=== PATIENT | female | born 1930 | race Caucasian/White ===

== ENCOUNTER 2019-10-03 15:23 | Emergency (ER) | payer OTHER ==
[~2019-10-03] VITALS: Ht 152.4 cm; Wt 49.0 kg
[2019-10-03 19:28] LABS: BASO % 0.2 % (0.0-1.0); EOS # 0.2 10*3/uL (0.0-0.4); EOS % 1.5 % (1.0-4.0); HEMATOCRIT 44.7 % (37.0-47.0); HEMOGLOBIN 14.5 g/dl (12.0-16.0); LYMPH # 2.9 10*3/uL (1.3-4.4); LYMPH % 21.4 % (27.0-41.0); MEAN CELL VOLUME 92.5 fl (81.0-99.0); MEAN CORPUSCULAR HGB CONC 32.4 g/dl (33.0-37.0); MEAN PLATELET VOLUME 10.3 fl (9.6-12.3); MONO # 0.8 10*3/uL (0.1-1.0); MONO % 5.7 % (3.0-9.0); NEUT # 9.6 10*3/uL (2.3-7.9); NEUT % 70.8 % (47.0-73.0); PLATELET COUNT AUTOMATED 231 10*3/uL (130-400); RED BLOOD COUNT 4.83 10*6/uL (4.10-5.10); RED CELL DISTRI WIDTH 12.8 % (0-14.5); WHITE BLOOD COUNT 13.6 10*3/uL (4.8-10.8)
[2019-10-03 19:38] LABS: ACT PARTIAL THROMBO TIME 25.8 SECONDS (20.0-32.1)
[2019-10-03 19:43] LABS: ALBUMIN 3.5 gm/dl (3.1-4.5); ALKALINE PHOSPHATASE 88 U/L (45-117); BUN 18 mg/dl (7-24); CHLORIDE 109 mmol/L (98-107); POTASSIUM 4.5 mmol/L (3.5-5.1); SGOT/AST 28 IU/L (3-35); SGPT/ALT 22 U/L (12-78); SODIUM 141 mmol/L (136-145); TOTAL PROTEIN 6.7 gm/dL (6.4-8.2)
[2019-10-03] MEDS ORDERED: GOOD NEIGHBOR500 M2 PO (21:32)
[2019-10-03] MEDS ORDERED: DONEPEZIL HCL10 MG PO (21:32)
[2019-10-03] MEDS ORDERED: ASPIRIN ADULT L81 M2 PO (21:32)
[2019-10-03] MEDS ORDERED: LEVETIRACETAM500 MG PO (21:33)
[2019-10-03] MEDS ORDERED: FLOVENT DISKUS50 MCG INH (21:33)
[2019-10-03] MEDS ORDERED: ICAPS AREDS2 S1 EACH PO (21:34)
[2019-10-03] MEDS ORDERED: ZYRTEC10 MG PO (21:36)
[2019-10-03] MEDS ORDERED: NATURAL LUTEIN20 MG PO (21:36)
[2019-10-03] MEDS ORDERED: PRAVASTATIN SOD80 MG PO (21:36)
[2019-10-03] MEDS ORDERED: Lopressor25 MG PO (21:36)
== END 2019-10-04 00:45 | disposition short-term general hospital (02) ==
LOC: ED 15:23
PROVIDERS: Physician Assistant
DX: S72.012A Unspecified intracapsular fracture of left femur, initial encounter for closed fracture (principal); S42.412A Displaced simple supracondylar fracture without intercondylar fracture of left humerus, initial encounter for closed fracture; I10 Essential (primary) hypertension; I25.10 Atherosclerotic heart disease of native coronary artery without angina pectoris; Z96.653 Presence of artificial knee joint, bilateral; W07.XXXA Fall from chair, initial encounter; Y93.89 Activity, other specified; Y92.000 Kitchen of unspecified non-institutional (private) residence as the place of occurrence of the external cause; Y99.8 Other external cause status

== ENCOUNTER 2020-08-06 08:47 | Inpatient (IN) | payer OTHER ==
[~2020-08-06] VITALS: Ht 152.4 cm; Wt 48.3 kg
[2020-08-06] VITALS (9 sets, daily range): BP systolic 110–169; BP diastolic 62–85
[~2020-08-06 08:47] MED LIST: ASPIRIN ADULT L81 M2 PO; DONEPEZIL HCL10 MG PO; FLOVENT DISKUS50 MCG INH; GOOD NEIGHBOR500 M2 PO; ICAPS AREDS2 S1 EACH PO; LEVETIRACETAM500 MG PO; Lopressor25 MG PO; NATURAL LUTEIN20 MG PO; PRAVASTATIN SOD80 MG PO; ZYRTEC10 MG PO
[2020-08-06 10:22] LABS: BASO % 0.4 % (0.0-1.0); EOS # 0.3 10*3/uL (0.0-0.4); EOS % 2.4 % (1.0-4.0); HEMATOCRIT 46.4 % (37.0-47.0); LYMPH # 2.6 10*3/uL (1.3-4.4); LYMPH % 23.3 % (27.0-41.0); MEAN CORPUSCULAR HGB 29.1 pg (27.0-31.0); MEAN CORPUSCULAR HGB CONC 31.3 g/dl (33.0-37.0); MEAN PLATELET VOLUME 9.8 fl (9.6-12.3); MONO # 0.8 10*3/uL (0.1-1.0); NEUT # 7.4 10*3/uL (2.3-7.9); NEUT % 66.5 % (47.0-73.0); PLATELET COUNT AUTOMATED 236 10*3/uL (130-400); RED BLOOD COUNT 4.99 10*6/uL (4.10-5.10); RED CELL DISTRI WIDTH 13.4 % (0-14.5); WHITE BLOOD COUNT 11.1 10*3/uL (4.8-10.8)
[2020-08-06 10:33] LABS: ACT PARTIAL THROMBO TIME 29.4 SECONDS (20.0-32.1)
[2020-08-06 10:36] LABS: BUN 18 mg/dl (7-24); CHLORIDE 107 mmol/L (98-107); CREATININE 0.73 mg/dL (0.55-1.02); POTASSIUM 4.4 mmol/L (3.5-5.1); SODIUM 140 mmol/L (136-145)
--- NOTE | 2020-08-06 13:44 | NUR ---
PT REVIEVED HIP BLOCK PER SURGERY Anna Marie VITAL PT STATES SHE IS COMFORTABE PT TOLERATED PROCEDURE WELL PT STATES SHE IS WARM ENOUGHT HAS NO REQUESTS
--- NOTE | 2020-08-06 16:15 | NUR ---
PATIENT INSTRUCTED ON I/S Q1 X 10. PATIENT ACHIEVED AN INITIAL VOLUME OF 1500 X 10. GOOD EFFORT.
--- NOTE | 2020-08-06 18:00 | NUR ---
Time: 1799 A 89 year old FEMALE admitted to 4E under services of DANILO ESTRADA DO. Pt. arrived via bed from ER. Chief complaint: RIGHT HIP FRACTURE. VICTORIA JADE
[2020-08-06] MEDS ORDERED: QUETIAPINE FUMA25 M1 PO (18:34)
--- NOTE | 2020-08-06 20:00 | NUR ---
IN TO ASSESS PATIENT. PATIENT PLEASANT AND COOPERATIVE IN NO DISTRESS SLEEPING BUT AROUSED EASILY. PATIENT STATES SHE JUST FEELS SORE, BUT IS ALRIGHT RIGHT NOW. PERKINS CATHETER DRAINING FOR YELLOW URINE. PATIENT HAS NO COMPLAINTS AT THIS TIME BESIDES WANTING A DRINK OF WATER. ICE WATER PROVIDED FOR PATIENT. PATIENT FORGETFUL, BUT STATES SHE KNOWS THAT SHE'S GETTING HER HIP FIXED TOMORROW. BREATHING IS EASY AND REGULAR. PATIENT ALSO SWABBED FOR COVID-19 FOR SNF PLACEMENT IN THE FUTURE. PATIENT TOLERATED WELL. CALL LIGHT WITHIN REACH, BED ALARM INTACT, WILL CONTINUE TO MONITOR
--- NOTE | 2020-08-06 22:09 | NUR ---
PRN NORCO GIVEN FOR PT COMPLAINTS OF RIGHT HIP PAIN RATING IT 6/10. CALL LIGHT WITHIN REACH, WILL MONITOR
--- NOTE | 2020-08-06 23:00 | NUR ---
PRN MEDICATION APPEARS EFFECTIVE, PT SLEEPING
[2020-08-07] VITALS (13 sets, daily range): BP systolic 89–138; BP diastolic 42–83
--- NOTE | 2020-08-07 00:35 | NUR ---
PRN MORPHINE GIVEN FOR PT COMPLAINTS OF PAIN IN THE RIGHT HIP RATING IT 5/10. CALL LIGHT WITHIN REACH, WILL MONITOR
--- NOTE | 2020-08-07 01:30 | NUR ---
PRN MORPHINE APPEARS EFFECTIVE, PT SLEEPING
--- NOTE | 2020-08-07 01:49 | NUR ---
24 HR chart check completed.
--- NOTE | 2020-08-07 03:05 | NUR ---
PT CONTINUES TO SLEEP. NO DISTRESS NOTED. SNORING RESPIRATIONS. CALL LIGHT WTIHIN REACH, WILL MONITOR
[2020-08-07 07:28] LABS: BASO % 0.3 % (0.0-1.0); EOS % 0.1 % (1.0-4.0); HEMATOCRIT 40.6 % (37.0-47.0); LYMPH # 1.9 10*3/uL (1.3-4.4); MEAN CELL VOLUME 91.6 fl (81.0-99.0); MEAN CORPUSCULAR HGB 29.3 pg (27.0-31.0); MEAN PLATELET VOLUME 9.8 fl (9.6-12.3); MONO # 1.1 10*3/uL (0.1-1.0); MONO % 7.5 % (3.0-9.0); NEUT # 11.7 10*3/uL (2.3-7.9); NEUT % 78.8 % (47.0-73.0); PLATELET COUNT AUTOMATED 239 10*3/uL (130-400); RED BLOOD COUNT 4.43 10*6/uL (4.10-5.10); RED CELL DISTRI WIDTH 13.4 % (0-14.5); WHITE BLOOD COUNT 14.8 10*3/uL (4.8-10.8)
[2020-08-07 07:43] LABS: ALBUMIN 3.2 gm/dl (3.1-4.5); ALKALINE PHOSPHATASE 69 U/L (45-117); BUN 20 mg/dl (7-24); CHLORIDE 106 mmol/L (98-107); CHOLESTEROL 119 mg/dL (<200); CREATININE 0.69 mg/dL (0.55-1.02); HDL CHOLESTEROL 62 mg/dl (40-60); POTASSIUM 4.8 mmol/L (3.5-5.1); SGOT/AST 13 IU/L (3-35); SGPT/ALT 17 U/L (12-78); SODIUM 139 mmol/L (136-145); TOTAL PROTEIN 6.7 gm/dL (6.4-8.2)
[2020-08-07 07:49] LABS: LDL CHOLESTEROL 41 mg/dL (9-159); THYROID STIM HORMONE (HS) 0.407 uIU/ml (0.358-4.75); TRIGLYCERIDES 80 mg/dl (<150); VLDL CHOLESTEROL 16 mg/dL (6-40)
[2020-08-07 08:38] LABS: VITAMIN D, 25-HYDROXY 37.5 ng/mL (30-100)
--- NOTE | 2020-08-07 10:20 | NUR ---
PT TAKEN TO OR FOR RIGHT HIP HEMARTHROPLASTY WITH DR LARRY.
--- NOTE | 2020-08-07 12:00 | NUR ---
Registered Dental Assistant in to talk to patient. Patient states lives at HOME with SONS MOTHER IN LAW. There are NO steps in the home. Physician: CRISTY Pharmacy: PT UNSURE OF NAME Home health services: NONE Patient's level of ADLs: MODERATE ASSIST Patient has working utilities: YES DME: [facility] Follow-up physician's appointment after d/c: WILL BE MADE BY HOSPITALIST NURSE DIRECTOR Does patient want to access PORTAL?: NO Discharge plan PT LIVES AT HOME WITH HER SONS MOTHER IN LAW. SON AND DAUGHTER IN LAW LIVE NEXT DOOR. DAUGHTER IN LAW PROVIDES CARE FOR BOTH MOTHERS. WILL TALK WITH SON ABOUT DISCHARGE PLANS AFTER SURGERY AND PT WORKS WITH PATIENT. WILL CONTINUE TO FOLLOW. . DON WOLF
--- NOTE | 2020-08-07 16:10 | NUR ---
Nursing screen received and chart reviewed. Patient had a right hip repair by Dr Moon this date. Patient could benefit from Occupational Therapy referral. Thank you. Glory Mckinley OTr/L
--- NOTE | 2020-08-07 19:59 | NUR ---
REQUESTED AND RECEIVED NORCO PER PRN ORDER FOR COMPLAINTS OF RIGHT HIP PAIN RATING A 6. WILL MONITOR
--- NOTE | 2020-08-07 20:05 | NUR ---
24 HR chart check completed.
--- NOTE | 2020-08-07 20:45 | NUR ---
EARLIER NORCO APPEARS EFFECTIVE. SLEEPING. RESPIRATIONS EASY. LUNGS DIMINISHED, CLEAR. PULSE OX 99% 2L. DRESSING DRY AND INTACT TO RIGHT HIP - ABDUCTOR PILLOW AND ICE IN PLACE. PERKINS PATENT. CALL LIGHT WITHIN REACH. NO VOICED COMPLAINTS. BED ALARM MAINTAINED FOR SAFETY
[2020-08-08] VITALS: BP 125/58
--- NOTE | 2020-08-08 | NUR ---
SLEEPING. NO DISTRESS NOTED. RESPIRATIONS EASY. VSS. CALL LIGHT WITHIN REACH. BED ALARM MAINTAINED
--- NOTE | 2020-08-08 02:14 | NUR ---
REQUESTED AND RECEIVED NORCO PER PRN ORDER FOR COMPLAINTS OF RIGHT HIP PAIN RATING A 6. WILL MONITOR
[2020-08-08] MEDS ORDERED: ASPIRIN ADULT L81 M2 PO (02:36)
--- NOTE | 2020-08-08 02:59 | NUR ---
EARLIER MEDS APPEAR EFFECTIVE. SLEEPING. RESPIRATIONS EASY. CALL LIGHT WITHIN REACH. BED ALARM MAINTAINED
--- NOTE | 2020-08-08 06:00 | NUR ---
SLEPT THROUGHOUT NIGHT WITH NO DISTRESS NOTED. RESPIRATIONS EASY. ICE PLACED TO RIGHT HIP. ABD PILLOW AND SCD IN PLACE. CALL LIGHT WITHIN REACH. BED ALARM MAINTAINED
[2020-08-08 07:08] LABS: BASO # 0.1 10*3/uL (0.0-0.1); BASO % 0.4 % (0.0-1.0); EOS # 0.6 10*3/uL (0.0-0.4); EOS % 4.8 % (1.0-4.0); LYMPH # 2.3 10*3/uL (1.3-4.4); LYMPH % 20.5 % (27.0-41.0); MEAN CELL VOLUME 91.8 fl (81.0-99.0); MEAN CORPUSCULAR HGB CONC 31.6 g/dl (33.0-37.0); MEAN PLATELET VOLUME 9.9 fl (9.6-12.3); MONO # 1.1 10*3/uL (0.1-1.0); MONO % 9.7 % (3.0-9.0); NEUT # 7.4 10*3/uL (2.3-7.9); NEUT % 64.3 % (47.0-73.0); PLATELET COUNT AUTOMATED 215 10*3/uL (130-400); RED BLOOD COUNT 4.14 10*6/uL (4.10-5.10); RED CELL DISTRI WIDTH 13.4 % (0-14.5); WHITE BLOOD COUNT 11.4 10*3/uL (4.8-10.8)
[2020-08-08 08:00] VITALS: BP 124/56
--- NOTE | 2020-08-08 08:27 | NUR ---
PT MEDICATED WITH PRN NORCO BEFORE WORKING WITH PT. PT RATED PAIN 10/10. WILL MONITOR.
--- NOTE | 2020-08-08 09:00 | NUR ---
PHYSICAL THERAPY Physical Therapy evaluation completed on with full evaluation to follow. Recommend physical therapy per plan of care and SNF upon discharge. Thank you for this referral. Brianna Menendez PT
--- NOTE | 2020-08-08 11:05 | NUR ---
PERKINS CATHETER REMOVED PER ORDER. 300 ML IN BAG.
--- NOTE | 2020-08-08 11:13 | NUR ---
Attempted to contact patients son and daughter in law, unable to contact, left message.
[2020-08-08 12:00] VITALS: BP 132/64
--- NOTE | 2020-08-08 14:01 | NUR ---
Patients son Tim called back, discussed discharge plan. He states that he believes patient is a little too much care to take home right now and would like a snf referral to the [facility] in [place]. Contacted [facility] and faxed initial referral. Waiting on OT eval, pt/ot notes, covid test negative and precert.
--- NOTE | 2020-08-08 14:15 | NUR ---
PHYSICAL THERAPY PT SUPINE IN BED UPON ARRIVEL. PT IDENTIFIED BY NAME AND . PT AGREED TO ALL PHYSICAL THERAPY TREATMENT. OT PRESENT FOT TREATMENT. PT PERFORMED BED MOBILITY MODaX2 WITH MAX VC'S TO PERFORM TASK PROPERLY AND TO MAINTAIN PRECATIONS. PT PERFORMED STS FROM EOB TO/FROM FWW WITH MODaX2 WITH VC'S FOR HAND PLACEMETN FOR SAFETY. PT PERFORMED STANDING TALERANCE FOR 10SEC AND REQUESTED TO SIT DUE TO PAIN. PT C/O INCREASED PAIN WITH STANDING AND SITTING. PT PERFORMED SIT TO SUPINE WITH MODaX2 AND VC'S TO MAINTAINE PRECAUTIONS. DEPENTANT LIFT X2 WITH SHEET UNDER PT TO MOVE PT TO HEAD OF BED REQUIRED. REVIEWED ALL PRECAUTIONS WITH PT. PT UNABLE TO REMEMBER AND REPORT BACK PRECAUTIONS AT THIS TIME. PT REPORTED "I HAD MY OTHER HIP DONE AND THIS IS MUCH WORSE. I DON'T KNOW IF IT'S JUST BECAUSE I'M OLER OR WHAT." PT SUPINE IN BED WITH BED ALARM ON AND CALL LIGHT IN HAND AT END OF SESSION. PT REPORTED NO OTHER NEEDS AT THIS TIME. PT SEEN 1:1 FOR 15MIN. CHRIS HARRELL PTA.
--- NOTE | 2020-08-08 15:40 | NUR ---
Occupational Therapy evaluation completed on the 4th floor with full eval to follow. Moderate complexity level. Precautions: WBAT, hip precautions, fall risk, O2, alarm. Recommend SNF. Thank you for this referral, Emma Doll OTR/L
[2020-08-08 16:00] VITALS: BP 130/72
[2020-08-08 20:00] VITALS: BP 131/74
--- NOTE | 2020-08-08 22:07 | NUR ---
PATIENT MEDICATED WITH NORCO FOR COMPLAINTS OF RIGHT HIP PAIN. WILL MONITOR FOR EFFECTIVENESS. CALL LIGHT IN REACH.
--- NOTE | 2020-08-08 23:00 | NUR ---
Joshfire EFFECTIVE. WILL CONTINUE TO MONITOR.
[2020-08-09] VITALS: BP 114/57
[2020-08-09 06:45] LABS: BASO % 0.3 % (0.0-1.0); EOS # 0.4 10*3/uL (0.0-0.4); EOS % 3.7 % (1.0-4.0); HEMATOCRIT 34.9 % (37.0-47.0); LYMPH # 2.9 10*3/uL (1.3-4.4); LYMPH % 24.4 % (27.0-41.0); MEAN CELL VOLUME 91.4 fl (81.0-99.0); MEAN CORPUSCULAR HGB 29.1 pg (27.0-31.0); MEAN CORPUSCULAR HGB CONC 31.8 g/dl (33.0-37.0); MONO # 1.3 10*3/uL (0.1-1.0); NEUT # 7.2 10*3/uL (2.3-7.9); NEUT % 60.2 % (47.0-73.0); PLATELET COUNT AUTOMATED 194 10*3/uL (130-400); RED BLOOD COUNT 3.82 10*6/uL (4.10-5.10); RED CELL DISTRI WIDTH 13.5 % (0-14.5)
[2020-08-09 07:21] LABS: BUN 14 mg/dl (7-24); CHLORIDE 107 mmol/L (98-107); CREATININE 0.44 mg/dL (0.55-1.02); POTASSIUM 3.9 mmol/L (3.5-5.1); SODIUM 139 mmol/L (136-145)
--- NOTE | 2020-08-09 07:30 | NUR ---
PT RESTING IN BED.RESPS EASY AND NON LABORED. NO S/S OF DISTRESS NOTED. VSS. WHITE BOARD UPDATED. POC DISCUSSED W PT. A/O X3. DENIES PAIN AT THIS TIME. ASSISTED TO SET UP TO EAT BREAKFAST. DRESSING R HIP C/D/I. WILL CONTINUE TO MONITOR. CALL LIGHT WITHIN REACH. FALL PRECAUTIONS MAINTAINED.
[2020-08-09 08:00] VITALS: BP 111/64
--- NOTE | 2020-08-09 10:00 | NUR ---
PHYSICAL THERAPY PATIENT SEEN TODAY FOR 1:1 SESSION WITH THIS PT. COMPLETED SUPINE LYING BLE THER EX FOR 2 SETS OF 1O REPS WITH MOD VC'S. COMPLETED SUP <> SIT WITH MOD/MAX OF 1 THEN SPT FROM BED TO CHAIR WITH MAX OF 1 WITH WBAT AND HIP PRECUATIONS IN PLACE. EDUCATION PROVIDED TO PATIENT FOR HIP PRECAUTIONS AND USE OF ABDUCTOR PILLOW WHILE IN BED. UPON COMPLETION OF SESSION WAS UP IN CHAIR WITH CALL LIGHT AND CLIP ALARM IN PLACE AND NURSING AWARE PATIENT WAS UP IN THE CHAIR. D/C REC REMAIN FOR SNF. THANK YOU DONALD LEHMAN PT
[2020-08-09 12:00] VITALS: BP 106/69
--- NOTE | 2020-08-09 13:58 | NUR ---
Patient resting quietly with no c/o discomfort. Respirations easy and regular. Vital signs stable. No overt distress. HISSOM,MT
[2020-08-09 16:00] VITALS: BP 129/56
--- NOTE | 2020-08-09 19:30 | NUR ---
PATIENT SITTING UP IN RECLINER. SLEEPING. NO DISTRESS NOTED. BREATHING IS EASY AND REGULAR. CALL LIGHT WITHIN REACH, BODY ALARM INTACT, WILL MONITOR
[2020-08-09 20:00] VITALS: BP 108/54
--- NOTE | 2020-08-09 20:26 | NUR ---
SPOKE WITH DR. ROBERSON AT THIS TIME. PATIENT REQUESTING PAIN PILL, BUT BP HAS BEEN ON THE LOWER END. ASKED IF SHE WOULD LIKE FOR ME TO HOLD THE PATIENTS METOPROLOL AND GIVE THE PAIN PILL INSTEAD. SHE STATED THAT THIS WAS OK. PRN NORCO GIVEN FOR PT COMPLAINTS OF PAIN RATING IT 5/10 IN HER RIGHT HIP. CALL LIGHT WITHIN REACH, WILL MONITOR
--- NOTE | 2020-08-09 21:20 | NUR ---
PRN NORCO APPEARS EFFECTIVE, PT SLEEPING. NO DISTRESS NOTED BREATHING IS EASY AND REGULAR. CALL LIGHT WITHIN REACH, BED ALARM INTACT, WILL MONITOR
[2020-08-10] VITALS: BP 100/54; BP 93/56
--- NOTE | 2020-08-10 02:27 | NUR ---
PATIENT CONTINUES TO SLEEP. NO DISTRES NOTED. BREATHING IS EASY AND REGULAR. CALL LIGHT WTIHIN REACH, BED ALARM INTACT, WILL MONITOR
--- NOTE | 2020-08-10 02:33 | NUR ---
24 HR chart check completed.
--- NOTE | 2020-08-10 07:35 | NUR ---
24 HR chart check completed.
[2020-08-10 08:00] VITALS: BP 108/58
--- NOTE | 2020-08-10 09:25 | NUR ---
RESTING WITH HOB ELEVATED, EATING BREAKFAST. RESPIRATIONS EASY. LUNGS DIMINISHED, CLEAR. PULSE OX 96% RA. RIGHT HIP DRESSING DRY AND INTACT. C/O PAIN TO RIGHT HIP RATING A 5, MEDICATED WITH NORCO PER PRN ORDER. TRACE BLE EDEMA WITH SCDS IN PLACE. CALL LIGHT WITHIN REACH. BED ALARM MAINTAINED FOR SAFETY. WILL MONITOR
--- NOTE | 2020-08-10 10:15 | NUR ---
EARLIER MEDS APPEAR EFFECTIVE. SLEEPING. RESPIRATIONS EASY. CALL LIGHT WITHIN REACH. BED ALARM MAINTAINED FOR SAFETY
--- NOTE | 2020-08-10 10:30 | NUR ---
DR FULTON AND RESIDENTS HERE TO ASSESS PATIENT AND DISCUSS PLAN OF CARE
--- NOTE | 2020-08-10 11:30 | NUR ---
PHYSICAL THERAPY PATIENT SEEN TODAY BY THIS PT FOR 1:1 SESSION. SESSION CONSISTED OF BLE THER EX IN SUPINE FOR 2 SETS OF 15 REPS WITH 50% VC'S. WORKED ON BED MOBILITY WITH HIP PRECUATIONS IN PLACE AND REVIEWED THESE WITH PATIENT. SUP<> SIT WITH MOD TO MAX OF 1 TODAY AND COMPLETED STS FROM EOB FOR 5 BOUTS WITH REST IN BETWEEN WITH MOD OF 1 WITH WBAT. UPON COMPLETION OFSESSION RETURNED TO SUPINE LYING IN THE BED WITH BED ALARM IN PLACE. D/C REC REMAIN FOR SNF. THANK YOU DONALD LEHMAN PT
[2020-08-10 12:00] VITALS: BP 111/61
--- NOTE | 2020-08-10 12:00 | NUR ---
NAPPING. NO DISTRESS NOTED. RESPIRATIONS EASY. CALL LIGHT WITHIN REACH. BED ALARM MAINTAINED
[2020-08-10 16:00] VITALS: BP 119/67
--- NOTE | 2020-08-10 16:00 | NUR ---
CONTINUES TO NAP. NO DISTRESS NOTED. RESPIRATIONS EASY. VSS. CALL LIGHT WITHIN REACH. BED ALARM MAINTAINED
--- NOTE | 2020-08-10 16:52 | NUR ---
REQUESTED AND RECEIVED NORCO PER PRN ORDER FOR COMPLAINTS OF RIGHT HIP PAIN RATING A 3. CALL LIGHT WITHIN REACH. WILL MONITOR
--- NOTE | 2020-08-10 17:30 | NUR ---
STATES RELIEF FROM EARLIER MEDS. CALL LIGHT WITHIN REACH. NO FURTHER VOICED COMPLAINTS
--- NOTE | 2020-08-10 18:00 | NUR ---
RIGHT HIP SURGICAL INCISION WELL APPROXIMATED WITH 18 CHAVA INTACT
[2020-08-10 20:00] VITALS: BP 119/59
--- NOTE | 2020-08-10 21:20 | NUR ---
MEDICATED WITH RESTORIL TO ASSIST WITH SLEEP. WILL MONITOR
--- NOTE | 2020-08-10 22:00 | NUR ---
RESTORIL EFFECTIVE, SLEEPING.
[2020-08-11] VITALS: BP 106/54
--- NOTE | 2020-08-11 07:50 | NUR ---
PHYSICAL THERAPY Patient seen this am 1:1 for therapy visit and was supine in bed upon therapist arrival. Patient identified by name / and joined by OT players assistant for observation this session. Patient reports 2/10 R hip pain and presented with continuos O2-2L via NC. Patient reviewed standard hip precations and voiced her understanding, prior to transfering supine to sit EOB with MOD A. Patient tolerated a minute or so of static EOB sit to collect herself priot monica completing sit to stand transfer with MIN A and use of wh walker standing support. Patient requested use of BSC, ambulating 5'x 1, wh walker, CGA, demonstrating very slow, cautious, antalgic gait pattern. Patient completed SPT to BSC then ambulated additional 7'x 1 to bedside chair and following brief seated rest was also able to complete seated B LE therex, inclduding LAQ and heel raises, x 10 reps each. Patient remained in chair sitting upright with purple foam abductor wedge, call light, tray table, telephone and body alarm for safety. Will continue per POC as tolerated, total treatment time 17 minutes. Patient also reported no change in pain c/o following all treatment. Marty Tirado, STRATEGIC MANAGER
[2020-08-11 08:00] VITALS: BP 116/56
--- NOTE | 2020-08-11 08:00 | NUR ---
OT NOTE Pt was seen this A.M. 1:1 for 25 minute OT session. Upon arrival pt was supine in bed. Pt identified by name and and had complaints of 2/10 R hip pain. Pt presented to therapy with continuous 2L-O2 via NC which she remained on throughout the entire session. Pt was unable to recall hip precautions. Re-educated pt on all hip precautions. Pt transferred supine to sit EOB with modA for assist with RLE and upper body. While sitting EOB challenged pt's dynamic sitting balance while weight shifting, crossing midline, and reaching over all planes (within hip precautions). Pt was able to maintain G- sitting balance throughout. Pt completed sit to stand from bed level with Marielos and use of w/w for UE support. Challenged pt's static standing tolerance needed for increased I in self care tasks and functional transfers. Pt was able to tolerate aprox 2 minutes before sitting due to fatigue. Functional mobility was completed to the bedside commode with CGA and use of w/w for UE support. Pt transferred on to the bedside commode with CGA for safety. Clothing management completed with CGA and toilet hygiene completed with supervision while seated. Sit to stand completed from bedside commode with Marielos. Functional mobility completed back to the recliner with CGA and use of w/w. Throughout all transfers and mobility pt was 100% compliant with all hip precautions. Pt was left sitting upright in the recliner with call light in hand, tray table in place, body alarm activated for safety, and abductor pillow in place. Continue with rec D/C plan to SNF. EASTON Clement
--- NOTE | 2020-08-11 08:49 | NUR ---
Faxed updated clinicals and therapy notes to [facility] to start precert, Covid was negative, precert started today, Tuesday08/11/2020. Waiting for auth
--- NOTE | 2020-08-11 09:30 | NUR ---
NORCO EFFECTIVE PER PT
[2020-08-11 12:00] VITALS: BP 112/61
--- NOTE | 2020-08-11 12:45 | NUR ---
OT NOTE Pt was seen this P.M. 1:1 for second OT session consisting of 20 minutes. Upon arrival pt was supine in bed. Pt identified by name and had complaints of 2/10 R hip pain. Pt presented to therapy with continuous 2L-O2 via NC which she remained on throughout the entire session. Pt was able to self recall and verbalize her hip precautions this session. Pt transferred supine to sit EOB with modA for assist with RLE and upper body. Sit to stand completed from bed level with Marielos and use of w/w for UE support. Functional mobility completed to the bathroom and back with CGA and use of w/w while also transferring on/off commode with Marielos. Functional mobility completed back to the EOB where she transferred sit to supine with Marielos for assist with RLE and was repositioned in bed with maxA X 2. There she was left with call light in hand, tray table in place, bed alarm activated for safety, and abductor pillow in place. Continue with rec D/C plan to SNF. ALYSON Clement/Rafaela
--- NOTE | 2020-08-11 14:14 | NUR ---
PHYSICAL THERAPY Patient was resting comfortably supine in bed this pm when approached for therapy visit and stated she was exhausted due to being up several times this am therapy / patient care. Patient requested to remain in bed to rest and will continue per POC as tolerated. Patient bed alarm activated for safety prior to Therapist exiting room. Marty Tirado, INVESTIGATIONS DIRECTOR
[2020-08-11 16:00] VITALS: BP 126/66
[2020-08-11 20:00] VITALS: BP 115/59; BP 190/74
--- NOTE | 2020-08-11 22:27 | NUR ---
INFORMED THAT PATIENT IS NOTED IN COMPUTER A DNR-CC BUT NO HARD COPY SIGNED, INFORMED I DISCUSSED WITH PATIENT IN GREAT DETAIL IF THIS IS WHAT SHE WANTS HER CODE STATUS TO BE, SHE STATES YES. INFORMED THAT A HARD COPY IN ON CHART TO SIGN. DOCTOR STATED OK.
[2020-08-12] VITALS: BP 117/56
--- NOTE | 2020-08-12 04:05 | NUR ---
PATIENT MEDICATED WITH NORCO FRO C/O RIGHT HIP PAIN 05/26. WILL MONITOR
--- NOTE | 2020-08-12 07:45 | NUR ---
PHYSICAL THERAPY Patient seen this am 1;1 for therapy visit and was relaxing supine in bed upon therapist arrival. Patient identified by name / and joined by OT furniture removalist's assistant for observation this session. Patient reports no c/o's pain this morning as she transfers supine to sit EOB with MIN A x 1. Patient was 100% compliant with standard hip precautions as she completed sit to stand transfer, CGA, with use of wh walker standing support. Patient ambulates 20'x 1, wh walker, CGA, demonstrating slow erika, decreased stride and unsteady step sequence during all turns. Patient returned to bedside chair with mild fatigue and remained with call light, tray table, telephone, body alarm for safety. Will continue per POC as tolerated, total treatment time 15 minutes. Marty Tirado, MARKETING AREA MANAGER
[2020-08-12 08:00] VITALS: BP 114/61
--- NOTE | 2020-08-12 08:00 | NUR ---
OT NOTE Pt was seen this A.m> 1:1 for 18 minute OT session. Upon arrival pt was supine in bed. Pt identified by name and and had no complaints at this time. Pt presented to therapy with continuous 2L-O2 via NC which she remained on throughout the entire session. Pt transferred supine to sit EOB with Marielos for assist with upper body. Pt was able to recall 2/3 hip precautiions, educated pt on all 3 for safety. Challenged pt's dynamic sitting balance while weight shifting, crossing midline, and reaching over all planes (within hip precautions) and pt was able to maintain G- sitting balance. Sit to stand completed from bed level with Marielos and use of w/w for UE support. Functional mobility completed to the bathroom and back with CGA and use of w/w. She then transferred on/off bedside commode with Marielos. Pt was left sitting upright in the recliner with call light in hand, tray table in place, and body alarm activated for safety. Continue with rec D/C plan to SNF. ALYSON Clement/Rafaela
--- NOTE | 2020-08-12 08:32 | NUR ---
[facility] calling stating they needed clinicals faxed. Faxed clinicals to [phone]
[2020-08-12 12:00] VITALS: BP 103/46
--- NOTE | 2020-08-12 13:05 | NUR ---
PHYSICAL THERAPY Patient seen this pm 1;1 for therapy visit and was still sitting up in bedside chair upon therapist arrival. Patient identified by name / and joined by OT assistant hall director for observation only this afternoon. Patient was very pleasant, voicing 4/10 R hip pain / pressure from sitting up so long. Patient requested return to bed and is WBAT on R LE with standard hip precautions. Patient transfers sit to stand from low chair surface, MIN A x 2, performing SPT to EOB sit, including 4-5 forward / 2-3 side steps for positioning, use of wh walker, CGA, demonstrating antalgic step sequence. Patient transfered sit to supine, MIN/MOD A, needing therapist assist with R LE secondary to c/o of increased R hip pressure / muscle weakness. Patient remained in bed with call light, tray table, telephone and bed alarm for safety. Will continue per POC as tolerated, total treatment time 13 minutes. Marty Tirado, USED EQUIPMENT SALES REPRESENTATIVE
--- NOTE | 2020-08-12 13:19 | NUR ---
Patient has received auth for the [facility] and can go if medically stable for discharge. Hospitalists notified.
--- NOTE | 2020-08-12 13:20 | NUR ---
OT NOTE Pt was seen this P.M> for second OT session consisting of 15 minute OT session. Upon arrival pt was sitting upright in the recliner. Pt identified by name and and had complaints of 4-5/10 R hip pain. Pt presented to therapy with continuous 2L-O2 via NC which she remained on throughout the entire session. Pt transferred sit to stand from chair level with Marielos X 2 and use of w/w for UE support. Functional mobility completed to the EOb with CGA and use of w/w. There she transferred sit to supine with Marielos for assist with RLE. Pt was left supine in bed with call light in hand, tray table in place, and bed alarm activated for safety. Continue with rec D/C plan to SNF. ALYSON Clement/Rafaela
[2020-08-12] MEDS ORDERED: DOK COLACE100 MG PO (13:27)
[2020-08-12] MEDS ORDERED: VITAMIN D350 MC2 PO (13:27)
--- NOTE | 2020-08-12 14:14 | NUR ---
Patient is discharged to the [facility] at 4 PM via family transport. Nh, nursing/wardrobe stylist and family all notifed. DC summary and orders faxed to [facility]
--- NOTE | 2020-08-12 15:54 | NUR ---
Discharge instructions reviewed with patient/family. Patient receptive and verbalizes understanding. Follow-up care arranged. Written instructions given to patient/family. DEIRDRE SMITH
--- NOTE | 2020-08-13 08:02 | NUR ---
PHYSICAL THERAPY CO-SIGN I approve of the Physical Therapy notes written above. LORAINE MONACO PT, DPT
--- NOTE | 2020-08-13 17:07 | NUR ---
OCCUPATIONAL THERAPY CO-SIGN I approve of the Occupational Therapy notes written above. NOEL TOLENTINO OTR/Rafaela
== END 2020-08-12 15:54 | disposition other institution (70) | DRG 522 ==
LOC: ED 08:47 → EDHOLD 11:10 → 4E 11:10
PROVIDERS: Emergency Medicine; Orthopaedic Surgery; Student in an Organized Health Care Education/Training Program; ADMIT Family Medicine; ATTEND Family Medicine
PROC: 0SRR0JZ Replacement of Right Hip Joint, Femoral Surface with Synthetic Substitute, Open Approach (ICD-10-PCS; principal; 2020-08-07)
DX: S72.031A Displaced midcervical fracture of right femur, initial encounter for closed fracture (principal); I25.10 Atherosclerotic heart disease of native coronary artery without angina pectoris; G40.909 Epilepsy, unspecified, not intractable, without status epilepticus; F03.90 Unspecified dementia, unspecified severity, without behavioral disturbance, psychotic disturbance, mood disturbance, and anxiety; D72.810 Lymphocytopenia; R06.89 Other abnormalities of breathing; E78.5 Hyperlipidemia, unspecified; W19.XXXA Unspecified fall, initial encounter; Z20.828 Contact with and (suspected) exposure to other viral communicable diseases; Y92.89 Other specified places as the place of occurrence of the external cause; Y99.8 Other external cause status; Y93.89 Activity, other specified; Z96.653 Presence of artificial knee joint, bilateral; Z79.1 Long term (current) use of non-steroidal anti-inflammatories (NSAID); Z79.82 Long term (current) use of aspirin

== ENCOUNTER → 2020-08-27 | Outpatient (CLI) | payer OTHER ==
[~2020-08-27] MED LIST changes: +DOK COLACE100 MG PO; +QUETIAPINE FUMA25 M1 PO; +VITAMIN D350 MC2 PO
== END | disposition home or self-care (01) ==
LOC: ORTHO 00:39
PROVIDERS: ATTEND Orthopaedic Surgery
DX: S72.031D Displaced midcervical fracture of right femur, subsequent encounter for closed fracture with routine healing (principal); Z96.641 Presence of right artificial hip joint; X58.XXXD Exposure to other specified factors, subsequent encounter

== ENCOUNTER → 2020-09-18 | Outpatient (CLI) | payer OTHER | END | disposition home or self-care (01) | LOC: ORTHO 13:15 | PROVIDERS: ATTEND Orthopaedic Surgery | DX: M81.0 Age-related osteoporosis without current pathological fracture (principal); S72.031D Displaced midcervical fracture of right femur, subsequent encounter for closed fracture with routine healing; Z96.641 Presence of right artificial hip joint; X58.XXXD Exposure to other specified factors, subsequent encounter ==

== ENCOUNTER → 2020-11-07 | Outpatient (CLI) | payer OTHER | END | disposition home or self-care (01) | LOC: ORTHO 00:54 | PROVIDERS: ATTEND Orthopaedic Surgery | DX: S72.031D Displaced midcervical fracture of right femur, subsequent encounter for closed fracture with routine healing (principal); Z98.890 Other specified postprocedural states; X58.XXXD Exposure to other specified factors, subsequent encounter ==

== ENCOUNTER → 2021-02-13 | Outpatient (CLI) | payer OTHER | END | disposition home or self-care (01) | LOC: COVID19 12:03 | PROVIDERS: ATTEND Surgery Vascular Surgery | DX: Z01.812 Encounter for preprocedural laboratory examination (principal); Z20.822 Contact with and (suspected) exposure to COVID-19 ==

== ENCOUNTER → 2021-02-23 | Outpatient (CLI) | payer OTHER | END | disposition home or self-care (01) | LOC: COVID19 15:36 | PROVIDERS: ATTEND Surgery Vascular Surgery | DX: Z01.812 Encounter for preprocedural laboratory examination (principal); Z20.822 Contact with and (suspected) exposure to COVID-19 ==